=== PATIENT | female | born 1955 | race Caucasian/White ===

== ENCOUNTER → 2017-02-11 | Outpatient (CLI) | payer BC | END | disposition home or self-care (01) | LOC: MAMMO 07:40 | PROVIDERS: ATTEND Family Medicine | DX: Z12.31 Encounter for screening mammogram for malignant neoplasm of breast (principal) | CPT/HCPCS: G0202 ==

== ENCOUNTER → 2017-06-03 | Outpatient (CLI) | payer BC ==
[2017-06-03 08:19] LABS: BASOPHILS % 0.8 % (0.0-2.0); HEMATOCRIT. 40.1 % (36.0-48.0); HEMOGLOBIN. 13.6 g/dL (12.0-16.0); LYMPHOCYTES % 36.7 % (20.0-50.0); MEAN CORPUSCULAR HEMOGLOBIN 28.2 pg (28.0-32.0); MEAN CORPUSCULAR VOLUME 83.3 fL (81.0-99.0); MEAN PLATELET VOLUME 8.8 fl (7.4-10.4); MONOCYTES % 5.9 % (2.0-8.0); NEUTROPHILS % 54.6 % (40.0-76.0); PLATELET 281 x1000/uL (130-400); RED BLOOD CELL COUNT 4.81 mill/uL (4.2-5.4); RED CELL DISTRIBUTION WIDTH 13.3 % (11.6-14.6)
== END | disposition home or self-care (01) ==
LOC: LAB 07:33
PROVIDERS: ATTEND Podiatrist Foot & Ankle Surgery
DX: B35.1 Tinea unguium (principal)
CPT/HCPCS: 36415; 80076; 85025

== ENCOUNTER → 2018-06-30 | Outpatient (CLI) | payer BC | END | disposition home or self-care (01) | LOC: MAMMO 07:47 | PROVIDERS: ATTEND Family Medicine | DX: Z12.31 Encounter for screening mammogram for malignant neoplasm of breast (principal); R92.1 Mammographic calcification found on diagnostic imaging of breast | CPT/HCPCS: 77067 ==

== ENCOUNTER → 2018-08-16 | Outpatient (CLI) | payer BC ==
[2018-08-16 08:00] LABS: CHLORIDE 104 mEq/L (98-107)
[2018-08-16 08:07] LABS: LDL CHOLESTEROL 104 mg/dL (5-100)
[2018-08-16 08:09] LABS: HDL CHOLESTEROL 56 mg/dL (40-59); T4 FREE 1.17 ng/dL (0.76-1.46)
[2018-08-16 08:16] LABS: BASOPHILS % 1.2 % (0.0-2.0); EOSINOPHILS % 1.6 % (0.0-5.0); HEMATOCRIT. 41.8 % (36.0-48.0); HEMOGLOBIN. 14.2 g/dL (12.0-16.0); LYMPHOCYTES % 33.3 % (20.0-50.0); MEAN CORPUSCULAR HEMOGLOBIN 28.8 pg (28.0-32.0); MEAN CORPUSCULAR VOLUME 84.8 fL (81.0-99.0); MEAN PLATELET VOLUME 8.8 fl (7.4-10.4); MONOCYTES % 5.7 % (2.0-8.0); NEUTROPHILS % 58.2 % (40.0-76.0); PLATELET 334 x1000/uL (130-400); RED BLOOD CELL COUNT 4.93 mill/uL (4.2-5.4); RED CELL DISTRIBUTION WIDTH 13.5 % (11.6-14.6)
[2018-08-17 08:14] LABS: *CREATININE RANDOM URINE 181.2 mg/dL (Not Estab.); MICROALBUMIN RANDOM URINE 61.5 ug/mL (Not Estab.)
== END | disposition home or self-care (01) ==
LOC: LAB 07:23
PROVIDERS: ATTEND Family Medicine
DX: Z00.00 Encounter for general adult medical examination without abnormal findings (principal)
CPT/HCPCS: 36415; 80053; 80061; 82043; 82570; 83036; 84439; 84443; 84481; 85025

== ENCOUNTER → 2019-01-17 | Outpatient (CLI) | payer BC ==
[2019-01-17 08:12] LABS: BASOPHILS % 0.9 % (0.0-2.0); EOSINOPHILS % 0.8 % (0.0-5.0); HEMATOCRIT. 42.6 % (36.0-48.0); HEMOGLOBIN. 14.4 g/dL (12.0-16.0); LYMPHOCYTES % 45.8 % (20.0-50.0); MEAN CORPUSCULAR HEMOGLOBIN 28.7 pg (28.0-32.0); MEAN CORPUSCULAR VOLUME 84.9 fL (81.0-99.0); MEAN PLATELET VOLUME 8.1 fl (7.4-10.4); MONOCYTES % 4.7 % (2.0-8.0); NEUTROPHILS % 47.8 % (40.0-76.0); PLATELET 349 x1000/uL (130-400); RED BLOOD CELL COUNT 5.02 mill/uL (4.2-5.4); RED CELL DISTRIBUTION WIDTH 13.4 % (11.6-14.6)
[2019-01-17 08:19] LABS: CHLORIDE 102 mEq/L (98-107)
[2019-01-17 08:25] LABS: LDL CHOLESTEROL 69 mg/dL (5-100)
[2019-01-17 08:28] LABS: HDL CHOLESTEROL 57 mg/dL (40-59); T4 FREE 1.44 ng/dL (0.76-1.46)
[2019-01-19 04:17] LABS: *CREATININE RANDOM URINE 250.4 mg/dL (Not Estab.); MICROALBUMIN RANDOM URINE 137.7 ug/mL (Not Estab.)
== END | disposition home or self-care (01) ==
LOC: LAB 07:31
PROVIDERS: ATTEND Family Medicine
DX: E11.9 Type 2 diabetes mellitus without complications (principal)
CPT/HCPCS: 36415; 80061; 82043; 82570; 83036; 84439; 84443

== ENCOUNTER → 2019-01-24 | Outpatient (CLI) | payer BC ==
[2019-01-24 12:31] LABS: CHLORIDE 104 mEq/L (98-107)
[2019-01-24 12:45] LABS: C REACTIVE PROTEIN QUANT 6.8 mg/L (0.0-3.0)
== END | disposition home or self-care (01) ==
LOC: LAB 11:37
PROVIDERS: ATTEND Family Medicine
DX: K21.9 Gastro-esophageal reflux disease without esophagitis (principal); K52.9 Noninfective gastroenteritis and colitis, unspecified; D12.6 Benign neoplasm of colon, unspecified; I10 Essential (primary) hypertension
CPT/HCPCS: 36415; 85651; 86140

== ENCOUNTER → 2019-02-23 | Outpatient (CLI) | payer BC ==
[~2019-02-23] MED LIST: BARIUM SULFATE(VOLUMEN) 450 ML ORAL.SUSP ONE; IOHEXOL-350 100 ML BOTTLE ONE
== END | disposition home or self-care (01) ==
LOC: CT 07:26
PROVIDERS: ATTEND Internal Medicine Gastroenterology
DX: K80.20 Calculus of gallbladder without cholecystitis without obstruction (principal); K76.0 Fatty (change of) liver, not elsewhere classified
CPT/HCPCS: 74177; Q9967

== ENCOUNTER → 2019-04-25 | Outpatient (CLI) | payer BC ==
[2019-04-26 05:13] LABS: RUBEOLA AB IGG < 25.00 AU/mL (Immune >29.9)
== END | disposition home or self-care (01) ==
LOC: LAB 08:13
PROVIDERS: ATTEND Family Medicine
DX: Z00.00 Encounter for general adult medical examination without abnormal findings (principal)
CPT/HCPCS: 86735; 86765